=== PATIENT | female | born 1985 ===

== ENCOUNTER 2025-01-06 16:25 | Outpatient (AMB) | payer OTHER, SELFPAY ==
--- NOTE | 2025-01-06 16:26 | MHC.PC.OV ---
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 History of Present Illness The patient is a 39-year-old female presenting with severe lower back pain and difficulty walking, suspected to be related to sciatica. Sciatica: - The patient reports severe pain in the left hip, radiating to the buttocks, which started approximately seven months ago. - The pain is described as acute and debilitating, rated as 10 out of 10 in severity, and worsens with standing or lying down. - The patient has tried cold and hot compresses, massages, and [id number] medications with limited relief. Suspected intervertebral disc inflammation: - The physician suspects an inflamed intervertebral disc compressing the sciatic nerve, causing the pain. - No prior trauma or specific inciting event was reported by the patient. Weight management concerns: - The patient expresses difficulty in losing weight despite efforts to maintain a healthy diet and regular physical activity. mass on upper back - she has had it for a few months is concerned Family history of osteoporosis and osteoarthritis: - The patient is concerned about a family history of osteoporosis and osteoarthritis, as her grandmother suffered from these conditions. Review of Systems - Musculoskeletal: Reports severe left hip pain radiating to the buttocks, rated 10/10 in severity. Denies any trauma or specific inciting event. - General: Reports difficulty walking and performing daily activities due to pain. - Neurological: Denies numbness or tingling. 10-point ROS reviewed and negative except as noted in HPI Past Medical History Health Maintenance - Discussed the importance of diet and exercise for weight management and prevention of osteoporosis. - Recommended a blood panel to assess thyroid function and other potential deficiencies related to weight management. Physical Exam General: Well-appearing, in no acute distress. Vital signs: Within normal limits. HEENT: Normocephalic, atraumatic. PERRLA, EOMI. Conjunctiva clear, sclera anicteric. Oropharynx clear, mucous membranes moist. TMs intact bilaterally. Neck: Supple, no lymphadenopathy, no thyromegaly, no JVD or carotid bruits. Cardiovascular: RRR, normal S1/S2, no murmurs, rubs, or gallops. Peripheral pulses 2+ and symmetric. No edema. Respiratory: Lungs clear to auscultation bilaterally, no wheezes, rales, or rhonchi. Normal effort. Abdomen: Soft, non-tender, non-distended. Normoactive bowel sounds. No hepatosplenomegaly, no masses. MSK: Limited range of motion due to pain in the left hip. Patient reports severe pain rated 10/10, affecting gait and causing limping. Negative straight leg raise test. No joint swelling or deformity. Normal gait otherwise. Skin: Warm, dry, intact. No rashes, lesions, or pallor. rounded mass on the upper left back Neuro: Alert and oriented x3. Cranial nerves II-XII intact. Strength 5/5 throughout. Sensation intact. Reflexes 2+ symmetric. Normal coordination and gait. Psych: Appropriate mood and affect. Normal judgment and insight. Plan 1. Sciatica - Initiate physical therapy to alleviate pain and improve mobility. - Prescribe ibuprofen 800 mg to be taken every 8 hours with food for pain management. 2. Suspected Intervertebral Disc Inflammation - Monitor symptoms and response to initial treatment with physical therapy and ibuprofen. 3. Weight Management Concerns - Conduct a blood panel to evaluate thyroid function and other potential metabolic issues. 4. Family History Of Osteoporosis And Osteoarthritis - Discuss preventative measures including diet and exercise to mitigate risk. 5. mass and upper back ultrasound of the upper back rule out lipoma 6. history of HPV she was having annual Pap smear performed to history of HPV there are no medical records we will refer to OBGYN for further screening and testing Discussion Notes I discussed with the patient the likely diagnosis of sciatica due to suspected intervertebral disc inflammation. We reviewed the plan to initiate physical therapy and prescribe ibuprofen for pain management. I also emphasized the importance of diet and exercise for weight management and osteoporosis prevention. A follow-up appointment was scheduled in two weeks to assess progress and adjust the treatment plan as necessary. Patient Instructions - Take ibuprofen 800 mg every 8 hours with food for pain relief. - Attend physical therapy sessions as scheduled to improve mobility and reduce pain. - Maintain a balanced diet and regular exercise to support weight management and bone health. - obtain ultrasound of the upper back - referral provided to OBGYN for cervical cancer screening - Return for a follow-up appointment in two weeks. Medical Decision Making The clinical presentation suggests sciatica, likely due to intervertebral disc inflammation. The decision to initiate physical therapy and prescribe ibuprofen was based on the severity of the patient's symptoms and the need for immediate pain relief. Monitoring the patient's response to treatment will guide further management. Additionally, addressing weight management and potential metabolic issues is crucial given the patient's concerns and family history. ultrasound was ordered to evaluate the mass of the back to rule out lipoma Total time spent caring for the patient today was 30 minutes. This includes time spent before the visit reviewing the chart, time spent documenting, and time spent reviewing laboratory results, diagnostic imaging, medications, performing a medically necessary evaluation, counseling on diagnoses, care coordination, ordering appropriate tests, ordering appropriate medications. [facility] Medical History (Updated 01/06/25 @ 16:53 by Frankie Romero MD) History of HPV infection Screening for malignant neoplasm of cervix Mass on back Sciatica Chronic lower back pain Family History (Updated 01/06/25 @ 16:27 by Klaudia Cano [facility]) Mother No problems noted. Father No problems noted. Social History Housing: Apartment Patient Tobacco Use Status: Never used Tobacco service: No Current occupational status: employed and unemployed Cognitive needs: No Hearing needs: No Vision needs: No Questionnaire PHQ-9 Over the last 2 weeks, how often have you been bothered by any of the following problems? 1. Little interest or pleasure in doing things: not at all 2. Feeling down, depressed, or hopeless: not at all 3. Trouble falling or staying asleep, or sleeping too much: not at all 4. Feeling tired or having little energy: several days 5. Poor appetite or overeating: not at all 6. Feeling bad about yourself - or that you are a failure or have let yourself or your family down: not at all 7. Trouble concentrating on things, such as reading the newspaper or watching television: not at all 8. Moving or speaking so slowly that other people could have noticed. Or the opposite - being so fidgety or restless that you have been moving around a lot more than usual: not at all 9. Thoughts that you would be better off or of hurting yourself in some way: not at all Total score: 1 Source: Developed by Drs. Waldemar Tejeda, Syeda Munoz, Shlomo Kirk and colleagues, with an educational debra from [employer]. Thrive Questionnaire Date Thrive assessed: 01/06/25 I am a: Patient What is your living situation today?: I have a steady place to live Within the past 12 months, did the food you bought not last and you didn't have the money to get more?: Never true Within the past 12 months, did you worry whether your food would run out before you got money to buy more?: Never true Do you have trouble paying for medicines?: No Do you have trouble getting transportation to medical appointments?: No Do you have trouble paying your heating and electricity bill?: No Do you have trouble taking care of your child, family member or friend?: No Are you currently unemployed and looking for a job?: No Are you interested in more education?: Yes Please select the resources that you would like help with: Paying for medicine Currently or been in a relationship where the following occur: No concerns reported THRIVE Score: 0 AUDIT C Alcohol Use Questionnaire (AUDIT-C) 1. How often do you have a drink containing alcohol?: Never Total Score: 0 JONNY-7 AMB Questionnaire JONNY-7 Date JONNY - 7 assessed: 01/06/25 Feeling nervous, anxious, or on edge: 0 = Not at all Not being able to stop or control worryin = Not at all Worrying too much about different things: 1 = Several days Trouble relaxin = Not at all Being so restless that it is hard to sit still: 0 = Not at all Becoming easily annoyed or irritable: 0 = Not at all Feeling afraid as if something awful might happen: 0 = Not at all Total JONNY-7 score (0-4 normal; 5-9 mild; 10-14 moderate; 15-21 severe): 1 Source: Developed by Drs. Waldemar Tejeda, Syeda Munoz, Shlomo Kirk and colleagues, with an educational debra from [employer]. Physical exam (Primary Care) Vital Signs: Last Vital Signs Temp 97.9 F 01/06/25 16:32 Pulse 61 01/06/25 16:32 BP 127/71 01/06/25 16:32 Pulse Ox 100 01/06/25 16:32 Oxygen Delivery Method Room Air 01/06/25 16:32 BMI result Body Mass Index 28.6 Tobacco/Smoking Status: Tobacco use Status Tobacco use date assessed 01/06/25 01/06/25 16:27 Patient Tobacco Use Status Never used Tobacco 01/06/25 16:27 PHQ-9: PHQ-9 Score PHQ-9: Total score 1 01/06/25 16:37 Thrive Assessment: Date of Thrive Assessment Date Thrive assessed 01/06/25 01/06/25 16:27 Currently or been in a relationship where the following occur: No concerns reported Coding Level of Care Code New Pt Level 4 (71760) Diagnoses Chronic lower back pain M54.50; G89.29 Sciatica M54.30 Mass on back R22.2 History of HPV infection Z86.19 Assessment & Plan Assessment & Plan (1) Chronic lower back pain: Code(s): M54.50 - Low back pain, unspecified; G89.29 - Other chronic pain Category: Medical (2) Sciatica: Code(s): M54.30 - Sciatica, unspecified side Category: Medical (3) Mass on back: Code(s): R22.2 - Localized swelling, mass and lump, trunk Category: Medical (4) History of HPV infection: Code(s): Z86.19 - Personal history of other infectious and parasitic diseases Category: Medical Plan Orders: Orders Hemoglobin A1c Today Z13.9 - Encounter for screening, unspecified Hepatitis C Antibody Today Z13.9 - Encounter for screening, unspecified Lipid Panel Today Z13.9 - Encounter for screening, unspecified TSH reflex Free T4 Today Z13.9 - Encounter for screening, unspecified UA CC w/rflx Micro + Cult Today Z13.9 - Encounter for screening, unspecified Vitamin B12 and Folate Today Z13.9 - Encounter for screening, unspecified PT Evaluation and Treatment Today G89.29 - Other chronic pain, M54.30 - Sciatica, unspecified side, M54.50 - Low back pain, unspecified US chest Today R22.2 - Localized swelling, mass and lump, trunk Complete Blood Count Auto Diff Today Z13.9 - Encounter for screening, unspecified Comprehensive Met. Panel Today Z13.9 - Encounter for screening, unspecified Hepatitis B Surface Antibody Today Z13.9 - Encounter for screening, unspecified Hepatitis B Surface Antigen Today Z13.9 - Encounter for screening, unspecified HIV Ab/Ag Today Z13.9 - Encounter for screening, unspecified Vitamin D 1,25 dihydroxy Today Z13.9 - Encounter for screening, unspecified Referrals LINEN SUPERVISOR Referral Z12.4 - Encounter for screening for malignant neoplasm of cervix, Z86.19 - Personal history of other infectious and parasitic diseases Medications: New cyclobenzaprine 5 mg PO BEDTIME 20 tabs 0RF ibuprofen 800 mg PO Q8H 30 tabs 0RF G89.29 - Other chronic pain, M54.50 - Low back pain, unspecified
--- OUTSIDE RECORDS SUMMARY | 2025-01-06 16:27 | XMS_ITS | Clinical Summary ---
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 Name Role Phone Unavailable Primary Care Provider Unavailabl e Source Comments PLEASE NOTE, if this patient is a minor, it may be UNLAWFUL to discuss sensitive information that is contained in these records (such as FAMILY PLANNING, MENTAL HEALTH or SUBSTANCE ABUSE) with the minor patient's parent or other person without the patient's specific authorization.[facility] Medications naproxen (NAPROSYN) 500 mg tabletIndication s:Breast pain Take 1 Tablet by mouth 2 (two) times daily with a meal 180 Tablet 08/31/2023 Active Active Problems No known active problems Social History Tobacco Use Types Packs/Day Years Used Date Smoking Tobacco: Never Assessed Social Connections Answer Date Recorded Connectedness 0 12/11/2023 Financial Resource Strain Answer Date R ecorded Financial Resource Strain 0 2023 Stress Answer Date Recorded Stress 0 08/31/2023 Physical Activity Answer Date Recorded Physical Activity 0 08/31/2023 Food Insecurity Answer Date Recorded Food 0 12/21/2023 Transportation Needs Answer Date Record ed Transportation 0 08/31/2023 Housing Stability Answer Date Recorded Housing 0 08/31/2023 Safety and Environment Answer Date Boni rded Safety 0 08/31/2023 Utilities Answer Date Recorded Utilities 0 08/31/2023 Employment Answer Date Recorded Stress 0 12/11/2023 Comments Unknown Sex and Gender Information Value Date Recorded Sex Assigned at Female 08/31/2023 7:16 AM PDT Legal Sex Female 11:58 AM PDT Gender Identity Female 08/31/2023 7:16 AM PDT Sexual Orientation Don't know 08/31/2023 7: 16 AM PDT Last Filed Vital Signs Vital Sign Reading Time Taken Comments Blood Pressure 122/89 11/14/2023 9:35 AM EDT Pulse 54 11/14/2023 9:35 AM EDT Temperature - - Respiratory Rate - - Oxygen Saturation - - Inhaled Oxygen Concentration - - Weight 72.1 kg (159 lb) 08/31/2023 9:46 AM EDT Height 160 cm (5' 2.99 ) 08/31/2023 9:46 AM EDT Body Mass Index 28.17 08/31/2023 9:46 AM EDT Plan of Treatment Health Maintenance Due Date Last Done Comments Anxiety Screening 1987 Diabetes Screening 1987 HPV Screening 1987 Hepatitis C Screening 1987 Pap + HPV 1987 Tobacco Screening 1987 HIV Screening 09/29/2002 Relationship Safety Screening/Counseling 09/29/2002 Imm-DTaP/Tdap/Td (1 - Tdap) 09/29/2006 Imm-Hepatitis B (1 of 3 - 19+ 3-dose series) 7 Cervical Cancer Screening 09/29/2008 Pap Smear 09/29/2008 Imm-HPV (1 - 3-dose SCDM series) 09/29/2014 Alcohol and Drug Screen 03/27/2024 Depression Annual Screen 03/27/2024 Hypertension Screening (#1) 11/13/2024 [id number] ( season) 2024 Imm-Influenza (#1) 2024 Cervical Ablation/Cold-Knife Conization Discontinued Cervical Cryotherapy Discontinued Colposcopy Discontinued Endometrial Biopsy Discontinued Excision/Leep Discontinued HPV Genotyping Discontinued Vaginal Pap Discontinued Vulvoscopy Dis[place] [facility]
[2025-01-06 16:32] VITALS: BP 127/71; PULSE 61; TEMP 36.6; O2SAT 100; BMI 28.6
== END 2025-01-06 16:56 | disposition home or self-care (01) ==
LOC: HO.HMCFMS 16:26
PROVIDERS: Visit Provider Student in an Organized Health Care Education/Training Program
DX: M54.50 Low back pain, unspecified (principal); G89.29 Other chronic pain; M54.30 Sciatica, unspecified side; R22.2 Localized swelling, mass and lump, trunk; Z86.19 Personal history of other infectious and parasitic diseases

== ENCOUNTER 2025-01-24 14:32 | Outpatient (REF) | payer OTHER, SELFPAY ==
--- OUTSIDE RECORDS SUMMARY | 2025-01-24 15:06 | XMS_ITS | Clinical Summary ---
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 Role Phone Unavailable Primary Care Provider [...] Screening 1987 Diabetes Screening 1987 HPV Screening (self-collect) 1987 HPV Screening 1987 Hepatitis C Screening 1987 Pap + HPV 1987 Tobacco Screening 1987 HIV Screening 09/29/2002 Relationship Safety Screening/Counseling 09/29/2002 Imm-DTaP/Tdap/Td (1 - Tdap) 09/29/2006 Imm-Hepatitis B (1 of 3 - 19+ 3-dose series) Cervical Cancer Screening 09/29/2008 Pap Smear 09/29/2008 Imm-HPV (1 - 3-dose SCDM series) 09/29/2014 Alcohol and Drug Screen 03/27/2024 Depression Annual Screen 03/27/2024 Hypertension Screening (#1) 11/13/2024 [id number] () 11/25/2024 Imm-Influenza (#1) 2024 Cervical Ablation/Cold-Knife Conization Discontinued Cervical Cryotherapy Discontinued Colposcopy Discontinued Excision/Leep Discontinued HPV Genotyping Discontinued Vaginal Pap Discontinued Vulvoscopy [place] [facility] DENT[facility]
[2025-01-24 18:00] LABS: MANUAL DIFF FLAG NO
[2025-01-24 18:18] LABS: Hematocrit 40.4 % (37.0-47.0); Hemoglobin 12.9 g/dl (12.0-16.0); Imm Gran Abs Auto 0.04 X10*3/uL (0.00-0.03); Imm Gran Pct Auto 0.5 % (0.0-0.4); Lymphocytes Absolute Auto 2.8 X10*3/uL (1.2-4.9); Mean Corpuscular HGB Conc 31.9 g/dl (31.0-35.0); Mean Corpuscular Hemoglobin 30.1 pg (27.0-33.0); Mean Corpuscular Volume 94.4 fL (80.0-98.0); NRBC Abs Auto 0.000 X10*3/uL (0.0-0.012); NRBC Pct Auto 0.0 /100WBC (0.0-0.2); Platelet Count 269 X10*3/uL (160-400); Red Blood Count 4.28 X10*6/uL (4.20-5.50); White Blood Count 8.0 X10*3/uL (4.8-10.8)
[2025-01-24 18:31] LABS: Alanine Aminotransferase 28 U/L (0-31); Albumin Level 4.6 g/dL (3.5-5.0); Alkaline Phosphatase 74 U/L (39-117); Anion Gap 13 (12-20); Aspartate Amino Transferase 23 U/L (5-31); Blood Urea Nitrogen 17 mg/dL (9-16); Calcium 9.1 mg/dL (8.4-10.2); Carbon Dioxide 24 mmol/L (22-29); Chloride 106 mmol/L (96-108); Cholesterol 195 mg/dL (<200); Estimated Glomerular Filt Rate > 60; HDL Cholesterol 32 mg/dL (>40); Potassium 4.9 mmol/L (3.3-5.1); Sodium 138 mmol/L (135-145); Total Protein 7.5 g/dL (6.5-8.0); Triglycerides 448 mg/dL (<150)
[2025-01-24 18:54] LABS: Folate 12.2 ng/mL (> or = 4.0); Vitamin B12 329 pg/mL (200-900)
[2025-01-25 07:27] LABS: HBS Num1 0.11 mIU/mL (0-7.99); HBsAGNum1 0.33 S/CO (0.00-0.99); HIV Num 1 0.08 S/CO (0.00-0.99); Hepatitis B Surface Antigen Negative (Negative); ~HepC Num1 0.12 S/CO (0.00-0.79); ~Hepatitis B Surface Antibody NONREACTIVE (Nonreactive); ~Hepatitis C Antibody Nonreactive (Nonreactive)
[2025-01-28 12:29] LABS: VITAMIN D (1,25 OH) D3 54 pg/mL; Vit D (1,25-Dihydroxy) Total 54 pg/mL (18-72); Vitamin D (1,25 OH) D2 <8 pg/mL
== END 2025-01-24 14:33 | disposition home or self-care (01) ==
LOC: HO.HKASLDS 14:32
PROVIDERS: PCP Student in an Organized Health Care Education/Training Program; Visit Provider Student in an Organized Health Care Education/Training Program
DX: Z11.4 Encounter for screening for human immunodeficiency virus [HIV] (principal); Z13.6 Encounter for screening for cardiovascular disorders; Z13.29 Encounter for screening for other suspected endocrine disorder; Z13.1 Encounter for screening for diabetes mellitus; Z13.21 Encounter for screening for nutritional disorder
CPT/HCPCS: 36415; 80053; 80061; 82607; 82652; 82746; 83036; 84443; 85025; 86706; 86803; 87340; 87389

== ENCOUNTER 2025-01-28 13:21 | Outpatient (AMB) | payer OTHER, SELFPAY ==
--- NOTE | 2025-01-28 13:25 | A.OFFPC_ITS ---
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 Sciatica: The patient has ongoing sciatica, initially presenting with pain suggestive of intervertebral disc involvement. Conservative management with ibuprofen and physical therapy was initiated. Symptoms persist but are stable, without acute exacerbation or new neurologic deficits reported. Suspected Intervertebral Disc Inflammation: Presented concurrently with sciatica symptoms. Conservative measures, including NSAIDs, have been employed, with an emphasis on lifestyle modifications to alleviate symptom severity. Mass on Upper Back: The patient noted a palpable mass on her upper back. No recent changes in size or associated pain were reported. A soft tissue ultrasound was planned after initial physical evaluation. Hypertriglyceridemia: Significant hypertriglyceridemia was identified via lipid panel, showing triglycerides at 448 mg/dL. The patient denies changes in diet but acknowledges difficulty in weight management. Low HDL: Concurrent low HDL levels noted alongside hypertriglyceridemia, supporting a diagnosis of dyslipidemia. Family history was queried, but no specific genetic predisposition was identified from the conversation. History of Human Papillomavirus (HPV): Ongoing HPV history, previously followed with annual Pap smears. Referral to [facility]ERSON[facility] was pursued for continued surveillance, as medical records are lacking. Surgical History: - No surgeries reported. Medications: - Ibuprofen 800 mg every 8 hours with fo od for pain management. Social History: - Difficulty with weight management, ray pite attempts at healthy eating habits. - No detailed employment, housing, or cooley bstance use history provided. Family History: - No family medical history was detailed in the conversation. Diagnostic Results: - Labs: - CBC: Within normal limits. - Comprehensive Metabolic Panel: Within normal limits. - Lipid Panel: Triglycerides high at 448 mg/dL, total cholesterol 195 mg/dL, HDL 32 mg/dL. - Vitamin Levels: B12 is 329; Vitamin D and folate within normal limits. - Thyroid function tests: Within normal limits. - Serology: Hepatitis B, hepatitis C, an d HIV tests are negative. - Tests and Diagnostics: - Ultrasound of soft tissue for upper back mass was ordered. Past Medical History - History of Human Papillomavirus (HPV). Health Maintenance - Referral made to [facility] IMPERSONATOR for continuing HPV screening and testing. - Referral to a registered dietitian for dietary and lifestyle education. - Labs indicated hypertriglyceridemia an d low HDL levels leading to omega-3 supplement prescription. [facility] Medical History (Updated 01/28/25 @ 15:55 by Frankie Romero MD) Low HDL (under 40) Hypertriglyceridemia Overweight (BMI 25.0-29.9) History of HPV infection Screening for malignant neoplasm of cervix Mass on back Sciatica Chronic lower back pain Family History Mother No problems noted. Father No problems noted. Social History Housing: Apartment Patient Tobacco Use Status: Never used Tobacco service: No Current occupational status: employed and unemployed Cognitive needs: No Hearing needs: No Vision needs: No Questionnaire Thrive Questionnaire Date Thrive assessed: 01/06/25 I am a: Patient What is your living situation today?: I have a steady place to live Within the past 12 months, did the food you bought not last and you didn't have the money to get more?: Never true Within the past 12 months, did you worry whether your food would run out before you got money to buy more?: Never true Do you have trouble paying for medicines?: No Do you have trouble getting transportation to medical appointments?: No Do you have trouble paying your heating and electricity bill?: No Do you have trouble taking care of your child, family member or friend?: No Do you have trouble with day-to-day activities such as bathing, preparing meals, shopping, managing finances, etc.?: No Are you currently unemployed and looking for a job?: No Are you interested in more education?: Yes Please select the resources that you would like help with: Paying for medicine Currently or been in a relationship where the following occur: No concerns reported THRIVE Score: 0 JONNY-7 AMB Questionnaire JONNY-7 Date JONNY - 7 assessed: 01/06/25 Source: Developed by Drs. Waldemar Tejeda, Syeda Munoz, Shlomo Kirk and colleagues, with an educational debra from [employer]. Review of Systems Narrative Review of Systems - Neurological: Reports sciatica. - Integumentary/Musculoskeletal: Reports a mass on the upper back. - Constitutional: Reports weight management concerns. 10-point ROS reviewed and negative except as noted in HPI Physical exam (Primary Care) Vital Signs: Last Vital Signs Temp 98.1 F 01/28/25 13:28 Pulse 54 01/28/25 13:28 Resp 16 01/28/25 13:28 BP 106/63 01/28/25 13:28 Pulse Ox 99 01/28/25 13:28 Oxygen Delivery Method Room Air 01/28/25 13:28 BMI result Body Mass Index 28.7 Tobacco/Smoking Status: Tobacco use Status Tobacco use date assessed 01/06/25 01/28/25 13:27 Patient Tobacco Use Status Never used Tobacco 01/28/25 13:27 Thrive Assessment: Date of Thrive Assessment Date Thrive assessed 01/06/25 01/28/25 13:27 Currently or been in a relationship where the following occur: No concerns reported Narrative Physical Exam General: Well-appearing, in no acute distress. Vital signs: Within normal limits. HEENT: Normocephalic, atraumatic. PERRLA, EOMI. Conjunctiva clear, sclera anicteric. Oropharynx clear, mucous membranes moist. TMs intact bilaterally. Neck: Supple, no lymphadenopathy, no thyromegaly, no JVD or carotid bruits. Cardiovascular: RRR, normal S1/S2, no murmurs, rubs, or gallops. Peripheral pulses 2+ and symmetric. No edema. Respiratory: Lungs clear to auscultation bilaterally, no wheezes, rales, or rhonchi. Normal effort. Abdomen: Soft, non-tender, non-distended. Normoactive bowel sounds. No hepatosplenomegaly, no masses. MSK: Full range of motion, no joint swelling or deformity. Normal gait. Noted mass on upper back; ultrasound of soft tissue ordered. Skin: Warm, dry, intact. No rashes, lesions, or pallor. Neuro: Alert and oriented x3. Cranial nerves II-XII intact. Strength 5/5 throughout. Sensation intact. Reflexes 2+ symmetric. Normal coordination and gait. Psych: Appropriate mood and affect. Normal judgment and insight. Coding Level of Care Code Est Pt Level 3 (40670) Diagnoses Sciatica M54.30 Chronic lower back pain M54.50; G89.29 Mass on back R22.2 Hypertriglyceridemia E78.1 Low HDL (under 40) E78.6 Overweight (BMI 25.0-29.9) E66.3 Assessment & Plan Assessment & Plan (1) Sciatica: Code(s): M54.30 - Sciatica, unspecified side Category: Medical (2) Chronic lower back pain: Code(s): M54.50 - Low back pain, unspecified; G89.29 - Other chronic pain Category: Medical (3) Mass on back: Code(s): R22.2 - Localized swelling, mass and lump, trunk Category: Medical (4) Hypertriglyceridemia: Code(s): E78.1 - Pure hyperglyceridemia Category: Medical (5) Low HDL (under 40): Code(s): E78.6 - Lipoprotein deficiency Category: Medical (6) Overweight (BMI 25.0-29.9): Code(s): E66.3 - Overweight Category: Medical Plan Consent The patient provided verbal consent for an ultrasound examination of the upper back mass. Discussion included the potential for discomfort during the procedure. The patient was informed of the benefits, including detailed mass characterization, and was advised that no contrast material would be used, minimizing risks. Consent for treatment and sending a prescription for omega-3 supplements was obtained, highlighting the role in managing hypertriglyceridemia and lowering cardiovascular risk. Patient was informed and verbally consented to the use of an ambient scribe for clinic note documentation during this visit. Plan 1. Sciatica And Suspected Intervertebral Disc Inflammation - Continue treatment with physical therapy. - Continue ibuprofen 800 mg every 8 hours with food as needed. 2. Mass On Upper Back - Ultrasound of the soft tissue ordered for evaluation. 3. Hypertriglyceridemia And Low Hdl - Start omega-3 supplements And fenofibrate - Dietitian referral for lifestyle education, including dietary adjustments and physical activity. 4. History Of Hpv - Referral to [facility] IMPERSONATOR for appropriate follow-up and screening. Discussion Notes I discussed with the patient the current status of her sciatica and confirmed ongoing conservative management with NSAIDs and physical therapy. We reviewed her lab results indicating high triglycerides and discussed the initiation of omega-3 supplements to manage dyslipidemia. I recommended addressing her weight management obstacles, and she was referred to a dietitian for a structured dietary program. The ultrasound evaluation for her upper back mass was detailed, with consent obtained for the non-invasive procedure. Follow-up with [facility] IMPERSONATOR was deemed necessary given her history of HPV and loss of prior records. Our conversation highlighted the importance of managing cardiovascular risks and maintaining ongoing screenings. Patient Instructions - Continue ibuprofen as prescribed for pain relief. - Attend scheduled physical therapy sessions. - Start omega-3 supplements as directed. - Schedule and undergo the ultrasound for the upper back mass. - Follow up with CHARACTER IMPERSONATOR for HPV screening. - Follow dietary and exercise guidance from the dietitian. Medical Decision Making The patient was seen following multiple health concerns including persistent sciatica potentially due to intervertebral disc inflammation, hypertriglyceridemia accompanied by low HDL, and a mass on her upper back. Given the elevated triglyceride level, omega-3 supplements were deemed necessary alongside dietary modifications, aimed at reducing cardiovascular risk. The asymptomatic mass warrants an ultrasound to establish a definitive assessment. Her sciatica remains amenable to conservative measures without signs of neurological compromise. Given her HPV history, and pending [facility] IMPERSONATOR follow-up to mitigate any potential complications, maintaining surveillance remains prudent. Throughout the visit, priority was placed on comprehensive management of acute findings while ensuring appropriate health maintenance strategies were pursued. Total time spent caring for the patient today was 20 minutes. This includes time spent before the visit reviewing the chart, time spent documenting, and time spent reviewing laboratory results, diagnostic imaging, medications, performing a medically necessary evaluation, counseling on diagnoses, care coordination. Orders: Referrals Medical Weight Management Referral E66.3 - Overweight Medications: New omega-3 acid ethyl esters 2 caps PO BID 360 caps 0RF fenofibrate 54 mg PO DAILY 90 tabs 0RF
[2025-01-28 13:28] VITALS: BP 106/63; PULSE 54; RESP 16; TEMP 36.7; O2SAT 99; BMI 28.7
== END 2025-01-28 13:45 | disposition home or self-care (01) ==
LOC: HO.HMCFMS 13:22
PROVIDERS: PCP Student in an Organized Health Care Education/Training Program; Visit Provider Student in an Organized Health Care Education/Training Program
DX: M54.30 Sciatica, unspecified side (principal); M54.50 Low back pain, unspecified; G89.29 Other chronic pain; R22.2 Localized swelling, mass and lump, trunk; E78.1 Pure hyperglyceridemia; E78.6 Lipoprotein deficiency; E66.3 Overweight